=== PATIENT | female | born 1935 | race Caucasian/White ===

== ENCOUNTER 2022-06-12 05:37 | Observation (INO) | payer MEDICARE ==
[2022-06-11 08:56] LABS: BASOPHILS % 0.5 % (0.0-1.0); EOSINOPHILS # (AUTO) 0.1 (0.0-0.4); EOSINOPHILS % 1.4 % (0.0-6.0); HEMATOCRIT 38.8 % (34.2-44.1); HEMOGLOBIN 11.2 g/dL (12.0-16.0); LYMPHOCYTES # (AUTO) 1.7 (1.0-3.2); LYMPHOCYTES % 26.8 % (18.0-39.1); MEAN CORPUSCULAR HEMOGLOBIN 28.4 pg (28-32); MEAN CORPUSCULAR HGB CONC 28.9 g/dL (31-35); MEAN CORPUSCULAR VOLUME 98.5 fL (81-99); MONOCYTES # (AUTO) 0.5 (0.2-0.8); MONOCYTES % 7.8 % (4.4-11.3); NEUTROPHILS # (AUTO) 4.1 (2.1-6.9); NEUTROPHILS % 63.2 % (38.7-80.0); PLATELET COUNT 185 x10e3/uL (140-360); RED BLOOD COUNT 3.94 x10e6/uL (3.6-5.1); RED CELL DISTRIBUTION WIDTH 15.9 % (11.7-14.4)
[~2022-06-12] VITALS: Ht 154.9 cm; Wt 68.0 kg
[~2022-06-12 05:37] MED LIST: CALCET TABLET1 EACH PO; FOSAMAX PLUS D1 EACH PO; LEVOTHYROXINE100 MC1 PO; MULTI-VITAMIN1 EACH PO; TYLENOL325 MG PO
[2022-06-12] MEDS ORDERED: CELECOXIB 200 MG CAP ONE (06:31)
[2022-06-12] MEDS ORDERED: DEXAMETHASONE SOD PHOS 10 MG/1 ML VIAL ONE ×2 (06:31→13:10)
[2022-06-12] MEDS ORDERED: CEFAZOLIN SODIUM 2 GM ONE (06:32)
[2022-06-12] MEDS ORDERED: GABAPENTIN 300 MG CAP ONE (06:32)
[2022-06-12] MEDS ORDERED: SODIUM CHLORIDE 0.9% 500ML 500 ML ONE (07:05)
[2022-06-12] MEDS ORDERED: TRANEXAMIC ACID 20 ML ONE (07:05)
[2022-06-12] MEDS ORDERED: Vancomycin IV 1,000 MG ONE (07:05)
[2022-06-12] MEDS ORDERED: ROPIVACAINE 246.25 MG, EPINEPHRINE HCL 1:1000 1ML 0.5 MG, CLONIDINE HCL 0.08 MG, KETORO... INJ ONE ×5 (08:00)
[2022-06-12] MEDS ORDERED: DOCUSATE SODIUM 100 MG CAP PO PRN (10:15)
[2022-06-12] MEDS: SODIUM CHLORIDE 0.9% 1000ML 1,000 ML IV SCH (10:15)
[2022-06-12] MEDS ORDERED: ONDANSETRON HCL INJ 2MG/ML 2ML 2 MG/ML VIAL IV PRN (10:15)
[2022-06-12] MEDS ORDERED: HYDROCODONE/APAP 7.5MG-325MG 1 EA TAB PO PRN (10:15)
[2022-06-12] MEDS ORDERED: HYDROCODONE/APAP 5MG-325MG TAB PO PRN (10:15)
[2022-06-12] MEDS ORDERED: ACETAMINOPHEN 650 MG SUPP PR PRN (10:15)
[2022-06-12] MEDS ORDERED: ZOLPIDEM TARTRATE 5 MG TAB PO PRN (10:15)
[2022-06-12] MEDS ORDERED: DIPHENHYDRAMINE HCL INJ 50 MG/ML VIAL IV PRN (10:15)
[2022-06-12] MEDS ORDERED: FENTANYL CITRATE/PF 100MCG/2 ML INJ ONE ×2 (10:35→13:24)
[2022-06-12] MEDS ORDERED: HYDROMORPHONE 1MG/1ML INJ ONE (10:57)
[2022-06-12] MEDS ORDERED: ACETAMINOPHEN 1000 MG/100 ML 100 ML IV ONE (12:01)
[2022-06-12 12:15] VITALS: BP 140/64
[2022-06-12 12:36] VITALS: BP 143/68
[2022-06-12] MEDS ORDERED: PROPOFOL IV EMULSION 10 MG/ML 20 ML VIAL ONE (12:53)
[2022-06-12] MEDS ORDERED: DEXAMETHASONE SOD PHOS INJ 4 MG/ML SDV ONE (12:53)
[2022-06-12] MEDS ORDERED: LIDOCAINE HCL 2% LOCAL INJ 5 ML SDV VIAL INJ ONE (12:53)
[2022-06-12] MEDS ORDERED: POVIDONE IODINE 0.05% 0.05 % ML PO ONE (12:53)
[2022-06-12] MEDS ORDERED: SEVOFLURANE INHAL SOLN 250 ML PEN BTL ONE (12:53)
[2022-06-12] MEDS ORDERED: ONDANSETRON HCL INJ 2MG/ML 2ML 2 MG/ML VIAL ONE (12:53)
[2022-06-12] MEDS ORDERED: ROPIVACAINE 0.5% 5 MG/ML 30 ML SDV ONE (13:10)
[2022-06-12] MEDS ORDERED: MIDAZOLAM HCL 2 MG/2 ML VIAL ONE (13:24)
[2022-06-12] MEDS ORDERED: ACETAMINOPHEN 1000 MG/100 ML IV PRN (14:00)
[2022-06-12 16:31] VITALS: BP 115/48
[2022-06-12] MEDS ORDERED: ASPIRIN 325 MG TAB PO SCH (17:00)
[2022-06-12] MEDS ORDERED: CELECOXIB 200 MG CAP PO SCH (17:00)
[2022-06-12 20:00] VITALS: BP 111/55
[2022-06-13] VITALS: BP 129/61
[2022-06-13] MEDS: SODIUM CHLORIDE 0.9% 1000ML 1,000 ML IV SCH (00:14)
[2022-06-13 01:48] VITALS: BP 115/48
[2022-06-13 04:00] VITALS: BP 126/56
[2022-06-13 04:40] LABS: HEMATOCRIT 32.8 % (34.2-44.1); HEMOGLOBIN 9.5 g/dL (12.0-16.0)
[2022-06-13 07:15] VITALS: BP 126/56
== END 2022-06-13 07:46 | disposition home or self-care (01) ==
LOC: OR 05:37 → PACU V 10:05 → MED/SURG 12:09
PROVIDERS: ADMIT Specialist; ATTEND Specialist
DX: M17.12 Unilateral primary osteoarthritis, left knee (principal); Z96.651 Presence of right artificial knee joint; M06.9 Rheumatoid arthritis, unspecified; I83.90 Asymptomatic varicose veins of unspecified lower extremity; I49.9 Cardiac arrhythmia, unspecified; R01.1 Cardiac murmur, unspecified; R53.1 Weakness; E03.9 Hypothyroidism, unspecified; Z88.6 Allergy status to analgesic agent; Z88.0 Allergy status to penicillin; Z88.2 Allergy status to sulfonamides; Z20.822 Contact with and (suspected) exposure to COVID-19; Z01.810 Encounter for preprocedural cardiovascular examination; Z01.812 Encounter for preprocedural laboratory examination; Z01.818 Encounter for other preprocedural examination; Z79.899 Other long term (current) drug therapy
CPT/HCPCS: 0223U; 27447; 36415 ×2; 71046; 73560; 85014; 85018; 85025; 93005; 94799; 97116 ×2; 97161; 97530; C1713 ×2; C1776 ×3; G0378 ×2; J0131; J0171; J0690; J1100 ×2; J1170; J1885; J2001; J2250; J2405; J2704; J2795; J3010; J3370; J7030; J7040

== ENCOUNTER 2022-08-03 08:00 | Outpatient (RCR) | payer MEDICARE | END 2022-08-05 | LOC: PT 08:00 | PROVIDERS: ATTEND Physician Assistant | DX: Z47.1 Aftercare following joint replacement surgery (principal); Z96.652 Presence of left artificial knee joint ==

== ENCOUNTER 2022-08-17 08:57 | Outpatient (RCR) | payer MEDICARE | END 2022-09-05 | LOC: PT 08:57 | PROVIDERS: ATTEND Physician Assistant | DX: Z47.1 Aftercare following joint replacement surgery (principal); Z96.652 Presence of left artificial knee joint ==